=== PATIENT | female | born 1990 | race Two or more races ===

== ENCOUNTER 2019-05-11 03:51 | Emergency (ER) | payer SELFPAY ==
[~2019-05-11] VITALS: Ht 157.5 cm; Wt 59.0 kg
[2019-05-11 04:13] VITALS: BP 110/68
--- NOTE | 2019-05-11 04:29 | PHYS DOC ---
Past Medical History Past Medical History: No Pertinent History Past Surgical History: Other Additional Past Surgical Histo: SKIN GRAFTS Alcohol Use: None Drug Use: None Adult General Chief Complaint Chief Complaint: LACERATION/AVULSION HPI HPI Patient is a 29 year old female who presents with complaint of abrasion to the left forearm. Patient states that she accidentally scratched her left forearm on a nail sticking out of a pallet while at work. Dress the wound while at work. Patient states however she does not remember when she last received a tetanus vaccination and thus came to the emergency department to have this addressed. Denies any difficulty moving the left arm and denies any other injuries. Review of Systems Review of Systems Constitutional: Denies fever or chills [] Musculoskeletal: Denies back pain or joint pain [] Integument: Left forearm abrasion[] Neurologic: Denies headache, focal weakness or sensory changes [] All other systems were reviewed and found to be within normal limits, except as documented in this note. Current Medications Current Medications Current Medications Medications (Trade) Dose Ordered Sig/Tosha Start Time Stop Time Status Last Admin Dose Admin Diphtheria/ Tetanus/Acell Pertussis (Boostrix) 0.5 ml ONCE ONCE 05/11/19 05:00 05/11/19 04:50 DC 05/11/19 04:41 0.5 ML Allergies Allergies Allergies Coded Allergies Type Severity Reaction Last Updated Verified No Known Drug Allergies 05/11/19 No Physical Exam Physical Exam Constitutional: Well developed, well nourished, no acute distress, non-toxic appearance. [] Skin: Warm, dry, 3 cm longitudinal abrasion on the posterior aspect of the left proximal forearm. [] Back: No tenderness, no CVA tenderness. [] Extremities: No tenderness, no cyanosis, no clubbing, ROM intact, no edema. [] Neurologic: Alert and oriented X 3, normal motor function, normal sensory function, no focal deficits noted. [] Current Patient Data Vital Signs Vital Signs Date Time Temp Pulse Resp B/P (MAP) Pulse Ox O2 Delivery O2 Flow Rate FiO2 05/11/19 04:13 98.3 97 20 110/68 (82) 99 Room Air 98.3 Lab Values Not performed EKG EKG Not performed[] Radiology/Procedures Radiology/Procedures Not performed[] Course & Med Decision Making Course & Med Decision Making Pertinent Labs and Imaging studies reviewed. (See chart for details) Patient's forearm wound does not require advanced closure. This was treated with routine wound care with wound cleansing using antibacterial soap and application of clean dressing. Patient's tetanus immunization was updated in the emergency department. Advised follow-up as needed in one week with primary doctor for reevaluation and return to emergency department for any worsening symptoms. Patient voiced understanding and in agreement with treatment plan.[] Dragon Disclaimer Dragon Disclaimer This electronic medical record was generated, in whole or in part, using a voice recognition dictation system. Departure Departure Impression: Primary Impression: Abrasion of left forearm, initial encounter Additional Impression: Need for tetanus booster Disposition: HOME, SELF-CARE Condition: IMPROVED Referrals: NO PCP (PCP) Patient Instructions: Abrasions Additional Instructions: You were given a full tetanus immunization booster at today's visit. Follow-up with your primary doctor in 1 week as needed. Return to the emergency department for any worsening symptoms. Problem Qualifiers CAYETANO CASTANO MD May 11, 2019 04:29
[2019-05-11] MEDS ORDERED: DIPHTH,PERTUSS(ACELL),TET TOX 0.5 ML DISP.SYRIN. VAX IM ONE (05:00)
== END 2019-05-11 04:49 | disposition home or self-care (01) ==
LOC: ER 03:51
DX: S50.812A Abrasion of left forearm, initial encounter (principal); W22.8XXA Striking against or struck by other objects, initial encounter; Y93.89 Activity, other specified; Y92.69 Other specified industrial and construction area as the place of occurrence of the external cause; Y99.0 Civilian activity done for income or pay
CPT/HCPCS: 90471; 90715; 99283